=== PATIENT | male | born 1950 | race Caucasian/White ===

== ENCOUNTER → 2016-05-31 | Outpatient (REF) | payer OTHER ==
[~2016-05-31] MED LIST: /ADVA50050 INH; ACET65TA OR; ADV500INH INH; AMLO10TA OR; ANTI50TA OR; ATOR1TAB18 PO; AUGM875T27 PO; COUM10TA PO; COUM1TAB17 PO; COUM2.5T11 PO; COUM7.5T PO; CRES20TA PO; FERR325T3 PO; LISI20TA5 PO; LISINOPRIL/HCTZ PO; MELO7.5S PO; OXYC-299 PO; PERC5TAB PO; PERC5TAB6 PO; SIMV10TA2 PO; SYMB160A INH; TYLE325T5 PO; VICO5TAB16 PO; VITA10002 PO
[2016-05-31 11:48] LABS: INR 1.5
== END ==
LOC: M SHH 11:18
PROVIDERS: ATTEND Nurse Practitioner Family
DX: Z51.81 Encounter for therapeutic drug level monitoring (principal); Z79.01 Long term (current) use of anticoagulants

== ENCOUNTER → 2016-06-02 | Outpatient (REF) | payer OTHER ==
[2016-06-02 11:10] LABS: INR 1.54
== END ==
LOC: M SHH 10:39
PROVIDERS: ATTEND Nurse Practitioner Family
DX: Z51.81 Encounter for therapeutic drug level monitoring (principal); Z79.01 Long term (current) use of anticoagulants

== ENCOUNTER → 2016-06-06 | Outpatient (REF) | payer OTHER ==
[2016-06-06 10:42] LABS: INR 2.3
== END ==
LOC: M SHH 10:14 → M LAB REF 10:14
PROVIDERS: ATTEND Nurse Practitioner Family
DX: Z51.81 Encounter for therapeutic drug level monitoring (principal); Z79.01 Long term (current) use of anticoagulants

== ENCOUNTER → 2016-07-05 | Outpatient (REF) | payer OTHER ==
[2016-07-05 18:43] LABS: ALBUMIN 3.9 GM/DL (3.2-5.2); ALBUMIN/GLOBULIN RATIO 1.08 (1.00-1.93); ALKALINE PHOSPHATASE 107 U/L (45-117); ALT/SGPT 26 U/L (12-78); ANION GAP 11 MEQ/L (8-16); AST/SGOT 20 U/L (15-37); BILIRUBIN,TOTAL 0.3 MG/DL (0.2-1.0); BLOOD UREA NITROGEN 16 MG/DL (7-18); CALCIUM LEVEL 9.1 MG/DL (8.8-10.2); CARBON DIOXIDE LEVEL 28 MEQ/L (21-32); CHLORIDE LEVEL 101 MEQ/L (98-107); CHOLESTEROL LEVEL 132 MG/DL (<200); CREATININE FOR GFR 0.69 MG/DL (0.70-1.30); GLOMERULAR FILTRATION RATE > 60.0 (>49); GLUCOSE, FASTING 86 MG/DL (80-110); SODIUM LEVEL 140 MEQ/L (136-145); TOTAL PROTEIN 7.5 GM/DL (6.4-8.2); TRIGLYCERIDES LEVEL 49 MG/DL (<150)
[2016-07-05 18:48] LABS: POTASSIUM SERUM 4.5 MEQ/L (3.5-5.1)
[2016-07-05 19:15] LABS: BASO % 0.9 % (0.0-1.0); EOS # 0.1 K/mm3 (0.0-0.50); EOS % 2.3 % (0.0-3.0); LARGE UNSTAINED CELL # 0.1 K/mm3 (0.0-0.4); LARGE UNSTAINED CELL % 1.8 % (0.0-4.0); LYMPH # 1.1 K/mm3 (1.5-4.5); LYMPH % 18.4 % (24.0-44.0); MEAN CORPUSCULAR HEMOGLOBIN 30.6 pg (27.0-33.0); MEAN CORPUSCULAR HGB CONC 33.2 g/dl (32.0-36.5); MEAN CORPUSCULAR VOLUME 92.3 fl (80.0-96.0); MONO # 0.4 K/mm3 (0.0-0.8); MONO % 7.1 % (0.0-5.0); NEUTROPHILS # 4.2 K/mm3 (1.8-7.7); NEUTROPHILS % 69.5 % (36.0-66.0); PLATELET COUNT, AUTOMATED 415 k/mm3 (150-450); RED CELL DISTRIBUTION WIDTH 13.1 % (11.5-14.5)
== END ==
LOC: M SFHCADAM 07:51
PROVIDERS: ATTEND Physician Assistant Medical
DX: E78.4 Other hyperlipidemia (principal); R73.01 Impaired fasting glucose

== ENCOUNTER → 2016-08-01 | Outpatient (CLI) | payer OTHER ==
[~2016-08-01] MED LIST changes: +GASTROGRAFIN SOLUTION 30ML (Q9963) As Ordered ONE; +ISOVUE-370 76% 100ML VIAL (Q9967) As Ordered ONE
--- NOTE | 2016-08-01 19:37 | REP ---
CT study of the abdomen and pelvis without and with IV contrast, with oral contrast: History: Left upper quadrant abdominal pain. CT contrast dose: 100 mL of Isovue [address] findings: Preliminary digital flagman radiograph demonstrates an unremarkable bowel gas pattern. The lung bases show a ill-defined 5 mm pulmonary nodule in the left lower lobe on image #6 of 56 in series 304 today's examination. This is not definitely visible on the prior CT study from 08/05/2013. And merits follow-up. The liver is normal in size and homogeneous in texture except for the presence of a simple cyst in the left lobe measuring 1.8 cm in greatest diameter. This it is unchanged from the [address] study. No splenic lesion is seen. Normal adrenal glands are seen bilaterally. The gallbladder and the pancreas are unremarkable. Kidneys enhance symmetrically and are morphologically intact. No hydronephrosis is seen. No retroperitoneal mass or adenopathy is seen. Normal caliber aorta is noted. There is an umbilical hernia noted in the anterior abdominal wall containing what appears to be a loop of distal ileum just prior to the ileocecal valve. No obstruction is seen. The appendix is not separately identified but there is no inflammatory change to suggest appendicitis. There is left colonic diverticulosis without CT evidence of diverticulitis. The umbilical hernia abdominal wall defect measures 2.9 cm in medial lateral span x 2 cm in craniocaudal dimension. Urinary bladder is intact. Seminal vesicles and prostate are unremarkable. No bony destructive lesion is seen. Impression: 1. Umbilical hernia transmitting distal ileal bowel loops without evidence of obstruction. 2. Stable left lobe hepatic cysts. No other acute intraabdominal abnormality. Left colonic diverticulosis seen. 3. 5 mm noncalcified pulmonary nodule left lower lobe merits follow-up. Follow-up CT study suggested with a 6 months. Signed by Freedom Guadalupe MD 08/01/2016 07:47 P
== END ==
LOC: M RAD 15:54
PROVIDERS: ATTEND Surgery
DX: R10.12 Left upper quadrant pain (principal); K42.9 Umbilical hernia without obstruction or gangrene; K76.89 Other specified diseases of liver; K57.30 Diverticulosis of large intestine without perforation or abscess without bleeding; R91.1 Solitary pulmonary nodule

== ENCOUNTER 2016-08-19 05:58 | Day surgery (SDC) | payer OTHER ==
[~2016-08-19] VITALS: Ht 188 cm; Wt 121.0 kg
[~2016-08-19 05:58] MED LIST changes: +ALBU17IN INH; -GASTROGRAFIN SOLUTION 30ML (Q9963) As Ordered ONE; -ISOVUE-370 76% 100ML VIAL (Q9967) As Ordered ONE
[2016-08-19] MEDS ORDERED: LR 1,000 ML IV SCH ×3 (06:15→09:00)
[2016-08-19] MEDS ORDERED: ALBUTEROL SULFATE 2.5 MG/0.5 ML INH NEB SOLN As Ordered ONE (07:00)
[2016-08-19] MEDS ORDERED: ALBUTEROL SULFATE 2.5 MG/0.5 ML INH NEB SOLN INH ONE (07:15)
[2016-08-19] MEDS ORDERED: BUPIVACAINE/EPIN 0.25% 30 ML VIAL As Ordered ONE (07:19)
[2016-08-19] MEDS ORDERED: ceFAZolin 1GM INJ (J0690) As Ordered ONE (07:23)
[2016-08-19] MEDS ORDERED: ceFAZolin SOD 1 GM in D5W MINI-BAG PLUS 50 ML IV ONE (07:30)
[2016-08-19] MEDS ORDERED: PROPOFOL 200 MG/20 ML VIAL As Ordered ONE ×2 (07:41→08:24)
[2016-08-19] MEDS ORDERED: MIDAZOLAM INJ 2 MG/2 ML VIAL (J2250) As Ordered ONE (07:41)
[2016-08-19] MEDS ORDERED: ROCURONIUM BROMIDE 50 MG/5 ML VIAL As Ordered ONE (07:41)
[2016-08-19] MEDS ORDERED: fentaNYL 250 MCG/5 ML INJECTION (J3010) As Ordered ONE (07:41)
[2016-08-19] MEDS ORDERED: LIDOCAINE 2% INJ 100 MG/5 ML SDV (FOR ANES.) As Ordered ONE (07:41)
[2016-08-19] MEDS ORDERED: DESFLURANE 240 ML INHALANT As Ordered ONE (07:41)
[2016-08-19] MEDS ORDERED: NEOSTIGMINE 1MG/ML 5 ML SYRINGE (J2710) As Ordered ONE (07:50)
[2016-08-19] MEDS ORDERED: GLYCOPYRROLATE INJ 0.2 MG/ML 2 ML VIAL As Ordered ONE (07:50)
[2016-08-19] MEDS ORDERED: ONDANSETRON 4MG/2ML VIAL (J2405) As Ordered ONE ×2 (07:50→08:55)
[2016-08-19] MEDS ORDERED: PHENYLephrine HCL 500 MCG/5 ML (100MCG/ML) SYRINGE (J2370) As Ordered ONE ×2 (07:56→08:01)
[2016-08-19] MEDS: PERCOCET 5MG/325MG TAB PO PRN ×3 (08:55→18:55)
[2016-08-19] MEDS ORDERED: fentaNYL 100 MCG/2 ML INJECTION (J3010) As Ordered ONE (08:55)
[2016-08-19] MEDS: fentaNYL 100 MCG/2 ML INJECTION (J3010) IV PRN ×4 (08:55→09:10)
[2016-08-19] MEDS ORDERED: PERCOCET 5MG/325MG TAB As Ordered ONE (08:55)
[2016-08-19] MEDS ORDERED: NORCO, ANEXSIA 5/325MG TABLET (HYDROcodone/ACETAMINOPHEN) PO PRN (09:00)
[2016-08-19] MEDS ORDERED: MORPHINE 2 MG/ML 1ML SYRINGE IV PRN ×2 (09:00→13:30)
[2016-08-19] MEDS ORDERED: ONDANSETRON 4MG/2ML VIAL (J2405) IV PRN ×3 (09:00→13:30)
[2016-08-19] MEDS ORDERED: METOCLOPRAMIDE INJ 10MG/2ML VIAL (J2765) IV PRN ×2 (09:00→13:30)
--- NOTE | 2016-08-19 09:05 | RO ---
DATE OF PROCEDURE: 08/19/2016 PREOPERATIVE DIAGNOSIS: Incisional hernia at the umbilicus. POSTOPERATIVE DIAGNOSIS: Incisional hernia at the umbilicus. PROCEDURE: Incisional hernia/umbilical hernia with mesh. SURGEON: Luis Daniel Baum MD [employer]: ANESTHESIA: General endotracheal anesthesia. ESTIMATED BLOOD LOSS: Minimal. FLUIDS: Crystalloid. DESCRIPTION OF PROCEDURE: The patient was brought to the operating room and was given general anesthesia. After adequate anesthesia and preoperative antibiotics were given, the patient was prepped, draped in the usual sterile fashion. Next, a periumbilical incision was made with skin knife. Electrocautery was used to cut through dermis, underlying subcutaneous tissue down to the fascia itself. The hernia sac was followed all the way around circumferentially and the hernia sac itself was mobilized off the surrounding subcutaneous tissue. The fascial defect was relatively large and I felt was something that would benefit from a ventral patch. Thus, a ventral patch was placed intraperitoneally and the tails of the mesh were sutured superiorly and inferiorly. The fascia was closed over the patch with #0 Ethibond sutures in a [id number] manner. #3-0 Vicryl was used to tack the umbilicus down to the fascia. #3-0 Vicryl was used to approximate dermis. #4-0 Vicryl was used to approximate the skin. Steri-Strips and a dry sterile dressing was applied. The patient was awakened, extubated, brought to recovery room awake, alert and hemodynamically stable. Sponge and needle counts correct times two.
[2016-08-19] MEDS: MORPHINE 2 MG/ML 1ML SYRINGE IV PRN ×2 (09:15→09:23)
[2016-08-19] MEDS ORDERED: NS 0.45% 1,000 ML IV SCH (13:30)
[2016-08-19] MEDS ORDERED: MORPHINE 4 MG/ML 1ML SYRINGE IV PRN (13:30)
[2016-08-19] MEDS ORDERED: PROMETHAZINE INJ 25 MG/ML VIAL (J2550) IV PRN (13:30)
[2016-08-19] MEDS ORDERED: zolPIDEM TARTRATE 10MG TAB PO PRN (13:30)
[2016-08-19] MEDS ORDERED: PERCOCET 5MG/325MG TAB PO PRN (13:30)
[2016-08-19 14:03] VITALS: BP 172/94
[2016-08-19] MEDS: PANTOPRAZOLE 40MG TAB (PROTONIX) PO SCH (15:19)
[2016-08-19] MEDS: LISINOPRIL 20 MG TAB PO SCH (15:19)
[2016-08-19] MEDS: DOCUSATE SODIUM 100 MG CAP PO SCH ×2 (15:19→20:32)
[2016-08-19] MEDS: ATORVASTATIN 20 MG TAB PO SCH (15:20)
[2016-08-19 16:00] VITALS: BP 162/92
[2016-08-19] MEDS: LEVALBUTEROL 1.25 MG/0.5 ML CONCENTRATE NEB INH SCH ×2 (16:00→19:45)
[2016-08-19] MEDS: ADVAIR DISKUS 500/50 INH PWD INH SCH (21:00)
[2016-08-19 22:00] VITALS: BP 114/78
[2016-08-20 06:00] VITALS: BP 118/75
[2016-08-20] MEDS: LEVALBUTEROL 1.25 MG/0.5 ML CONCENTRATE NEB INH SCH ×2 (07:52→11:28)
[2016-08-20] MEDS: DOCUSATE SODIUM 100 MG CAP PO SCH (08:06)
[2016-08-20] MEDS: PANTOPRAZOLE 40MG TAB (PROTONIX) PO SCH (08:07)
[2016-08-20 08:11] VITALS: BP 151/84
[2016-08-20] MEDS: LISINOPRIL 20 MG TAB PO SCH (08:11)
[2016-08-20] MEDS: ATORVASTATIN 20 MG TAB PO SCH (08:11)
[2016-08-20] MEDS: PERCOCET 5MG/325MG TAB PO PRN (08:14)
[2016-08-20 10:00] VITALS: BP 132/79
[2016-08-20] MEDS: ADVAIR DISKUS 500/50 INH PWD INH SCH (11:27)
[2016-08-20] MEDS ORDERED: PERCOCET PO (11:29)
== END 2016-08-20 12:49 | disposition home or self-care (01) ==
LOC: M SDC 05:58 → M MSPAV 14:10 → M SDC 08-20 12:49
PROVIDERS: ATTEND Surgery
DX: K42.9 Umbilical hernia without obstruction or gangrene (principal); I11.9 Hypertensive heart disease without heart failure; E78.4 Other hyperlipidemia; M54.5 Low back pain; J45.30 Mild persistent asthma, uncomplicated; R73.01 Impaired fasting glucose; E66.01 Morbid (severe) obesity due to excess calories; Z79.51 Long term (current) use of inhaled steroids; Z79.899 Other long term (current) drug therapy
CPT/HCPCS: 49585; 88302; 94640; C1781; J0690; J2250; J2370; J2405; J2710; J3010

== ENCOUNTER → 2017-02-09 | Outpatient (REF) | payer OTHER ==
[~2017-02-09] MED LIST changes: -ATOR1TAB18 PO; +ATOR80TA59 PO; -COUM2.5T11 PO; +COUM2.5T17 PO; +OXYC-141 PO; -OXYC-299 PO; +PERC5TAB12 PO; -PERC5TAB6 PO; +PERCOCET PO
== END ==
LOC: M SFHCADAM 08:34
PROVIDERS: ATTEND Physician Assistant Medical
DX: N40.1 Benign prostatic hyperplasia with lower urinary tract symptoms (principal)

== ENCOUNTER → 2017-08-21 | Outpatient (REF) | payer MEDICARE, OTHER ==
[2017-08-21 12:36] LABS: HEMATOCRIT 45.3 % (42.0-52.0); HEMOGLOBIN 15.1 g/dl (14.0-18.0); MEAN CORPUSCULAR HEMOGLOBIN 30.3 pg (27.0-33.0); MEAN CORPUSCULAR HGB CONC 33.3 g/dl (32.0-36.5); MEAN CORPUSCULAR VOLUME 90.8 fl (80.0-96.0); PLATELET COUNT, AUTOMATED 319 10^3/uL (150-450); RED BLOOD COUNT 4.99 10^6/uL (4.30-6.10); RED CELL DISTRIBUTION WIDTH 14.3 % (11.5-14.5); WHITE BLOOD COUNT 5.5 10^3/uL (4.0-10.0)
[2017-08-21 13:09] LABS: MALB URINE SIEMENS 15.9 MG/L; MAU/CREAT RATIO 8.6 MCG/MG (0.0-30.0)
[2017-08-21 13:14] LABS: ALBUMIN 3.8 GM/DL (3.2-5.2); ALBUMIN/GLOBULIN RATIO 1.19 (1.00-1.93); ALKALINE PHOSPHATASE 80 U/L (45-117); ALT/SGPT 31 U/L (12-78); ANION GAP 6 MEQ/L (8-16); AST/SGOT 31 U/L (7-37); BILIRUBIN,TOTAL 0.7 MG/DL (0.2-1.0); BLOOD UREA NITROGEN 20 MG/DL (7-18); CALCIUM LEVEL 8.5 MG/DL (8.8-10.2); CARBON DIOXIDE LEVEL 29 MEQ/L (21-32); CHLORIDE LEVEL 104 MEQ/L (98-107); CHOLESTEROL LEVEL 136 MG/DL (<200); CHOLESTEROL RISK RATIO 2.956 (<5); CREATININE FOR GFR 0.92 MG/DL (0.70-1.30); GLOMERULAR FILTRATION RATE > 60.0 (>49); GLUCOSE, FASTING 92 MG/DL (70-100); HDL CHOLESTEROL 46 MG/DL (>40); LDL CHOLESTEROL 77.6 MG/DL (<100); NON-HDL-C 90 MG/DL; POTASSIUM SERUM 4.1 MEQ/L (3.5-5.1); PSA SCREENING 0.66 NG/ML (< 4.0); SODIUM LEVEL 139 MEQ/L (136-145); TRIGLYCERIDES LEVEL 62 MG/DL (<150)
[2017-08-21 15:04] LABS: ESTIMATED AVERAGE GLUCOSE 120 MG/DL (60-110); HEMOGLOBIN A1c 5.8 %
== END ==
LOC: M SFHCADAM 07:45
DX: E78.4 Other hyperlipidemia (principal); R73.01 Impaired fasting glucose; N40.1 Benign prostatic hyperplasia with lower urinary tract symptoms
CPT/HCPCS: 84443

== ENCOUNTER → 2017-08-22 | Outpatient (REF) | payer OTHER, MEDICARE ==
[2017-08-22 14:01] LABS: APPEARANCE, URINE CLEAR (CLEAR); BACTERIA, URINE AUTO NEGATIVE (NEGATIVE); BILIRUBIN, URINE AUTO NEGATIVE (NEGATIVE); BLOOD, URINE BLOOD NEGATIVE (NEGATIVE); COLOR, URINE YELLOW (YELLOW); GLUCOSE, URINE (UA) AUTO NEGATIVE (NEGATIVE); KETONE, URINE AUTO NEGATIVE (NEGATIVE); LEUKOCYTE ESTERASE, URINE AUTO NEGATIVE (NEGATIVE); NITRITE, URINE AUTO NEGATIVE (NEGATIVE); PROTEIN, URINE AUTO NEGATIVE (NEGATIVE); RBC, URINE AUTO 0 /HPF (0-3); SPECIFIC GRAVITY URINE AUTO 1.021 (1.002-1.035); SQUAMOUS EPITHELIAL CELL UR AU 1 /HPF (0-6); UROBILINOGEN, URINE AUTO 0.2 mg/dL (0.0-2.0); WBC, URINE AUTO 1 /HPF (0-3)
== END ==
LOC: M SFHCADAM 12:42
DX: N39.43 Post-void dribbling (principal)
CPT/HCPCS: 81001

== ENCOUNTER → 2018-02-01 | Outpatient (REF) | payer MEDICARE, OTHER ==
[2018-02-01 12:58] LABS: BASO # 0.1 10^3/uL (0.0-0.2); BASO % 1.6 % (0.0-1.0); EOS # 0.2 10^3/uL (0.0-0.50); EOS % 3.2 % (0.0-3.0); HEMATOCRIT 45.9 % (42.0-52.0); HEMOGLOBIN 15.4 g/dl (13.5-17.5); IMMATURE GRANULOCYTE % 0.3 % (0-3.0); LYMPH # 1.4 10^3/uL (1.5-4.5); LYMPH % 21.9 % (24.0-44.0); MEAN CORPUSCULAR HEMOGLOBIN 30.9 pg (27.0-33.0); MEAN CORPUSCULAR HGB CONC 33.6 g/dl (32.0-36.5); MONO # 0.6 10^3/uL (0.0-0.8); MONO % 9.5 % (0.0-5.0); NEUTROPHILS % 63.5 % (36.0-66.0); PLATELET COUNT, AUTOMATED 300 10^3/uL (150-450); RED BLOOD COUNT 4.99 10^6/uL (4.30-6.10); RED CELL DISTRIBUTION WIDTH 13.9 % (11.5-14.5); WHITE BLOOD COUNT 6.3 10^3/uL (4.0-10.0)
[2018-02-01 13:08] LABS: FOLATE 13.2 NG/ML
[2018-02-01 13:11] LABS: VITAMIN B12 LEVEL 597 PG/ML
[2018-02-01 13:13] LABS: FERRITIN 85 NG/ML (26-388); IRON (FE) 77 UG/DL (65-175); PERCENT SATURATION 23.6 % (19.7-50.0); TOTAL IRON BINDING CAPACITY 326 UG/DL (250-450)
== END ==
LOC: M SFHCADAM 07:58
DX: E61.1 Iron deficiency (principal); N40.1 Benign prostatic hyperplasia with lower urinary tract symptoms; E53.8 Deficiency of other specified B group vitamins
CPT/HCPCS: 82746

== ENCOUNTER → 2018-08-21 | Outpatient (REF) | payer MEDICARE, OTHER ==
[2018-08-21 12:50] LABS: BASO # 0.1 10^3/uL (0.0-0.2); BASO % 1.6 % (0.0-1.0); EOS # 0.3 10^3/uL (0.0-0.50); EOS % 3.7 % (0.0-3.0); HEMATOCRIT 47.7 % (42.0-52.0); HEMOGLOBIN 15.7 g/dl (13.5-17.5); LYMPH # 1.3 10^3/uL (1.5-4.5); LYMPH % 18.6 % (24.0-44.0); MEAN CORPUSCULAR HEMOGLOBIN 29.8 pg (27.0-33.0); MEAN CORPUSCULAR HGB CONC 32.9 g/dl (32.0-36.5); MEAN CORPUSCULAR VOLUME 90.5 fl (80.0-96.0); MONO # 0.6 10^3/uL (0.0-0.8); MONO % 8.8 % (0.0-5.0); NEUTROPHILS # 4.7 10^3/uL (1.8-7.7); PLATELET COUNT, AUTOMATED 320 10^3/uL (150-450); RED BLOOD COUNT 5.27 10^6/uL (4.30-6.10); WHITE BLOOD COUNT 6.9 10^3/uL (4.0-10.0)
[2018-08-21 13:04] LABS: ALT/SGPT 33 U/L (12-78); BILIRUBIN,TOTAL 0.4 MG/DL (0.2-1.0); BLOOD UREA NITROGEN 16 MG/DL (7-18); CALCIUM LEVEL 9.1 MG/DL (8.8-10.2); CARBON DIOXIDE LEVEL 31 MEQ/L (21-32); CHLORIDE LEVEL 102 MEQ/L (98-107); CHOLESTEROL LEVEL 162 MG/DL (<200); CHOLESTEROL RISK RATIO 3.056 (<5); CREATININE FOR GFR 0.83 MG/DL (0.70-1.30); GLOMERULAR FILTRATION RATE > 60.0 (>49); GLUCOSE, FASTING 88 MG/DL (70-100); HDL CHOLESTEROL 53 MG/DL (>40); IRON (FE) 75 UG/DL (65-175); LDL CHOLESTEROL 96 MG/DL (<100); NON-HDL-C 109 MG/DL; PERCENT SATURATION 22.1 % (19.7-50.0); POTASSIUM SERUM 4.5 MEQ/L (3.5-5.1); SODIUM LEVEL 139 MEQ/L (136-145); TOTAL IRON BINDING CAPACITY 340 UG/DL (250-450); TOTAL PROTEIN 7.3 GM/DL (6.4-8.2); TRIGLYCERIDES LEVEL 63 MG/DL (<150)
[2018-08-21 13:05] LABS: FERRITIN 98 NG/ML (26-388); VITAMIN B12 LEVEL 591 PG/ML (247-911)
== END ==
LOC: M SFHCADAM 10:50
PROVIDERS: ATTEND Physician Assistant Medical
DX: I11.9 Hypertensive heart disease without heart failure (principal); R73.01 Impaired fasting glucose; E78.49 Other hyperlipidemia; D50.9 Iron deficiency anemia, unspecified; E53.8 Deficiency of other specified B group vitamins; N40.1 Benign prostatic hyperplasia with lower urinary tract symptoms; E66.01 Morbid (severe) obesity due to excess calories; Z68.41 Body mass index [BMI] 40.0-44.9, adult
CPT/HCPCS: 80053; 80061; 82306; 82607; 82728; 83036; 83550; 84443; 85025; G0103

== ENCOUNTER → 2018-08-28 | Outpatient (CLI) | payer MEDICARE, OTHER ==
[~2018-08-28] MED LIST changes: -/ADVA50050 INH; +ADVA1AER2 INH; -CRES20TA PO; +CRES20TA2 PO
--- NOTE | 2018-08-28 11:04 | REP ---
DUPLEX CAROTID SONOGRAPHY: HISTORY: Carotid artery disease. FINDINGS: Antegrade flow is observed in the left vertebral artery. The right vertebral artery was not seen. RIGHT CAROTID: Right carotid bifurcation is high in the neck. Common carotid artery is unremarkable on two-dimensional scanning. There is mild soft plaquing in the bulb and proximal ICA on two-dimensional scanning. Color flow and spectral Doppler interrogation are unremarkable on the right. Velocity Chart Right Carotid: PSV EDV Right CCA 85 cm/s Right ICA 62 cm/s 11 cm/s Right ECA 83 cm/s Right ICA/CCA ratio normal 0.72. IMPRESSION: 0-15% category narrowing in the right ICA by Doppler velocity criteria. LEFT CAROTID: The left common carotid artery is unremarkable . The left carotid bifurcation is also high in the neck. There is mild mixed plaquing in the bulb and proximal ICA. Color flow and spectral Doppler interrogation are unremarkable on the left. Velocity Chart Left Carotid: PSV EDV Left CCA 81 cm/s Left ICA 31 cm/s 14 cm/s Left ECA 55 cm/s Left ICA/CCA ratio normal 0.4. IMPRESSION: 0-15% category narrowing in the left ICA by Doppler velocity criteria. Electronically Signed by Freedom Guadalupe MD 08/28/2018 01:19 P
== END ==
LOC: M RAD 09:38
PROVIDERS: ATTEND Physician Assistant Medical
DX: I77.9 Disorder of arteries and arterioles, unspecified (principal)

== ENCOUNTER → 2019-02-11 | Outpatient (REF) | payer MEDICARE, OTHER ==
[~2019-02-11] MED LIST changes: +CYAN100049 PO; -VITA10002 PO
[2019-02-11 12:41] LABS: BASO # 0.1 10^3/uL (0.0-0.2); BASO % 1.1 % (0.0-1.0); EOS # 0.2 10^3/uL (0.0-0.5); EOS % 2.9 % (0.0-3.0); HEMOGLOBIN 15.3 g/dl (13.5-17.5); LYMPH # 1.2 10^3/uL (1.5-5.0); LYMPH % 18.7 % (24.0-44.0); MEAN CORPUSCULAR HEMOGLOBIN 30.9 pg (27.0-33.0); MEAN CORPUSCULAR HGB CONC 33.3 g/dl (32.0-36.5); MEAN CORPUSCULAR VOLUME 92.9 fl (80.0-96.0); MONO # 0.5 10^3/uL (0.0-0.8); MONO % 8.2 % (0.0-5.0); NEUTROPHILS # 4.5 10^3/uL (1.5-8.5); NEUTROPHILS % 68.6 % (36.0-66.0); PLATELET COUNT, AUTOMATED 324 10^3/uL (150-450); RED BLOOD COUNT 4.95 10^6/uL (4.30-6.10); WHITE BLOOD COUNT 6.5 10^3/uL (4.0-10.0)
[2019-02-11 12:55] LABS: HEMOGLOBIN A1c 5.9 %
[2019-02-11 12:57] LABS: ALBUMIN 3.8 GM/DL (3.2-5.2); ALT/SGPT 37 U/L (12-78); BILIRUBIN,TOTAL 0.5 MG/DL (0.2-1.0); BLOOD UREA NITROGEN 13 MG/DL (7-18); CALCIUM LEVEL 8.6 MG/DL (8.8-10.2); CARBON DIOXIDE LEVEL 31 MEQ/L (21-32); CHLORIDE LEVEL 102 MEQ/L (98-107); CHOLESTEROL LEVEL 141 MG/DL (<200); CHOLESTEROL RISK RATIO 2.937 (<5); CREATININE FOR GFR 0.85 MG/DL (0.70-1.30); GLOMERULAR FILTRATION RATE > 60.0 (>49); GLUCOSE, FASTING 93 MG/DL (70-100); HDL CHOLESTEROL 48 MG/DL (>40); LDL CHOLESTEROL 77 MG/DL (<100); NON-HDL-C 93 MG/DL; POTASSIUM SERUM 3.9 MEQ/L (3.5-5.1); SODIUM LEVEL 139 MEQ/L (136-145); TOTAL 25(OH) VITAMIN D 29.3 NG/ML (30.0-100.0); TOTAL PROTEIN 6.9 GM/DL (6.4-8.2); TRIGLYCERIDES LEVEL 79 MG/DL (<150)
== END ==
LOC: M SFHCADAM 09:05
PROVIDERS: ATTEND Physician Assistant Medical
DX: I11.9 Hypertensive heart disease without heart failure (principal); E66.01 Morbid (severe) obesity due to excess calories; R73.01 Impaired fasting glucose; I50.32 Chronic diastolic (congestive) heart failure; J45.30 Mild persistent asthma, uncomplicated; D50.9 Iron deficiency anemia, unspecified

== ENCOUNTER → 2019-07-30 | Outpatient (REF) | payer MEDICARE, OTHER ==
[2019-07-30 13:09] LABS: BASO # 0.1 10^3/uL (0.0-0.2); BASO % 1.4 % (0.0-1.0); EOS # 0.2 10^3/uL (0.0-0.5); EOS % 3.6 % (0.0-3.0); HEMATOCRIT 46.6 % (42.0-52.0); HEMOGLOBIN 15.3 g/dl (13.5-17.5); LYMPH # 1.4 10^3/uL (1.5-5.0); MEAN CORPUSCULAR HEMOGLOBIN 30.3 pg (27.0-33.0); MEAN CORPUSCULAR HGB CONC 32.8 g/dl (32.0-36.5); MEAN CORPUSCULAR VOLUME 92.3 fl (80.0-96.0); MONO # 0.6 10^3/uL (0.0-0.8); MONO % 9.3 % (0.0-5.0); NEUTROPHILS # 4.1 10^3/uL (1.5-8.5); NEUTROPHILS % 63.5 % (36.0-66.0); PLATELET COUNT, AUTOMATED 342 10^3/uL (150-450); RED BLOOD COUNT 5.05 10^6/uL (4.30-6.10); WHITE BLOOD COUNT 6.5 10^3/uL (4.0-10.0)
[2019-07-30 13:39] LABS: ALBUMIN 3.9 GM/DL (3.2-5.2); ALT/SGPT 34 U/L (12-78); BILIRUBIN,TOTAL 0.7 MG/DL (0.2-1.0); BLOOD UREA NITROGEN 14 MG/DL (7-18); CALCIUM LEVEL 8.7 MG/DL (8.8-10.2); CARBON DIOXIDE LEVEL 29 MEQ/L (21-32); CHLORIDE LEVEL 104 MEQ/L (98-107); CHOLESTEROL LEVEL 148 MG/DL (<200); CHOLESTEROL RISK RATIO 3.083 (<5); CREATININE FOR GFR 0.88 MG/DL (0.70-1.30); FERRITIN 108 NG/ML (26-388); GLOMERULAR FILTRATION RATE > 60.0 (>49); GLUCOSE, FASTING 98 MG/DL (70-100); HDL CHOLESTEROL 48 MG/DL (>40); IRON (FE) 76 UG/DL (65-175); LDL CHOLESTEROL 88 MG/DL (<100); MALB URINE SIEMENS 24.5 MG/L; MAU/CREAT RATIO 7.7 MCG/MG (0.0-30.0); NON-HDL-C 100 MG/DL; PERCENT SATURATION 22.7 % (19.7-50.0); POTASSIUM SERUM 4.2 MEQ/L (3.5-5.1); SODIUM LEVEL 139 MEQ/L (136-145); TOTAL IRON BINDING CAPACITY 335 UG/DL (250-450); TOTAL PROTEIN 7.3 GM/DL (6.4-8.2); TRIGLYCERIDES LEVEL 60 MG/DL (<150)
[2019-07-30 16:37] LABS: HEMOGLOBIN A1c 6.1 %
== END ==
LOC: M SFHCADAM 08:21
PROVIDERS: ATTEND Physician Assistant Medical
DX: I11.9 Hypertensive heart disease without heart failure (principal); E66.01 Morbid (severe) obesity due to excess calories; R73.01 Impaired fasting glucose; I77.9 Disorder of arteries and arterioles, unspecified; J45.30 Mild persistent asthma, uncomplicated; D50.9 Iron deficiency anemia, unspecified; N40.1 Benign prostatic hyperplasia with lower urinary tract symptoms
CPT/HCPCS: 80053; 80061; 82043; 82728; 83036; 83550; 85025; G0103

== ENCOUNTER → 2020-02-04 | Outpatient (REF) | payer MEDICARE, OTHER ==
[~2020-02-04] MED LIST changes: -COUM7.5T PO; +COUM7.5T6 PO
[2020-02-04 13:40] LABS: BASO # 0.1 10^3/uL (0.0-0.2); BASO % 1.3 % (0.0-1.0); EOS # 0.2 10^3/uL (0.0-0.5); EOS % 2.7 % (0.0-3.0); HEMATOCRIT 47.2 % (42.0-52.0); HEMOGLOBIN 15.6 g/dl (13.5-17.5); LYMPH # 1.3 10^3/uL (1.5-5.0); LYMPH % 19.3 % (24.0-44.0); MEAN CORPUSCULAR HEMOGLOBIN 31.4 pg (27.0-33.0); MEAN CORPUSCULAR HGB CONC 33.1 g/dl (32.0-36.5); MONO # 0.6 10^3/uL (0.0-0.8); MONO % 9.3 % (0.0-5.0); NEUTROPHILS # 4.5 10^3/uL (1.5-8.5); NEUTROPHILS % 67.1 % (36.0-66.0); PLATELET COUNT, AUTOMATED 295 10^3/uL (150-450); RED BLOOD COUNT 4.97 10^6/uL (4.30-6.10); WHITE BLOOD COUNT 6.8 10^3/uL (4.0-10.0)
[2020-02-04 14:05] LABS: ALBUMIN 3.7 GM/DL (3.2-5.2); ALT/SGPT 37 U/L (12-78); BILIRUBIN,TOTAL 0.6 MG/DL (0.2-1.0); BLOOD UREA NITROGEN 14 MG/DL (7-18); CARBON DIOXIDE LEVEL 28 MEQ/L (21-32); CHLORIDE LEVEL 106 MEQ/L (98-107); CHOLESTEROL LEVEL 147 MG/DL (<200); CHOLESTEROL RISK RATIO 2.773 (<5); CREATININE FOR GFR 0.81 MG/DL (0.70-1.30); GLOMERULAR FILTRATION RATE > 60.0 (>49); GLUCOSE, FASTING 96 MG/DL (70-100); HDL CHOLESTEROL 53 MG/DL (>40); LDL CHOLESTEROL 83 MG/DL (<100); NON-HDL-C 94 MG/DL; POTASSIUM SERUM 4.1 MEQ/L (3.5-5.1); SODIUM LEVEL 137 MEQ/L (136-145); TOTAL PROTEIN 7.1 GM/DL (6.4-8.2); TRIGLYCERIDES LEVEL 53 MG/DL (<150)
[2020-02-04 14:41] LABS: HEMOGLOBIN A1c 5.9 %
== END ==
LOC: M LABDRWAD 12:43 → M SFHCADAM 12:43
PROVIDERS: ATTEND Physician Assistant Medical
DX: E66.01 Morbid (severe) obesity due to excess calories (principal); I10 Essential (primary) hypertension

== ENCOUNTER → 2020-08-06 | Outpatient (REF) | payer MEDICARE, OTHER ==
[2020-08-06 12:30] LABS: BASO # 0.1 10^3/uL (0.0-0.2); BASO % 0.9 % (0.0-1.0); EOS # 0.1 10^3/uL (0.0-0.5); EOS % 1.6 % (0.0-3.0); HEMATOCRIT 45.3 % (42.0-52.0); HEMOGLOBIN 15.1 g/dl (13.5-17.5); LYMPH # 1.1 10^3/uL (1.5-5.0); LYMPH % 13.8 % (24.0-44.0); MEAN CORPUSCULAR HEMOGLOBIN 31.1 pg (27.0-33.0); MEAN CORPUSCULAR HGB CONC 33.3 g/dl (32.0-36.5); MEAN CORPUSCULAR VOLUME 93.4 fl (80.0-96.0); MONO # 0.7 10^3/uL (0.0-0.8); MONO % 8.9 % (2.0-8.0); NEUTROPHILS # 5.7 10^3/uL (1.5-8.5); NEUTROPHILS % 74.3 % (36.0-66.0); PLATELET COUNT, AUTOMATED 282 10^3/uL (150-450); RED BLOOD COUNT 4.85 10^6/uL (4.30-6.10); WHITE BLOOD COUNT 7.6 10^3/uL (4.0-10.0)
[2020-08-06 13:00] LABS: ALBUMIN 3.9 GM/DL (3.2-5.2); ALT/SGPT 28 U/L (12-78); BILIRUBIN,TOTAL 0.6 MG/DL (0.2-1.0); BLOOD UREA NITROGEN 16 MG/DL (7-18); CARBON DIOXIDE LEVEL 29 MEQ/L (21-32); CHLORIDE LEVEL 107 MEQ/L (98-107); CHOLESTEROL LEVEL 158 MG/DL (<200); CHOLESTEROL RISK RATIO 2.821 (<5); CREATININE FOR GFR 0.85 MG/DL (0.70-1.30); FERRITIN 84 NG/ML (26-388); GLOMERULAR FILTRATION RATE > 60.0 (>49); GLUCOSE, FASTING 97 MG/DL (70-100); HDL CHOLESTEROL 56 MG/DL (>40); IRON (FE) 84 UG/DL (65-175); LDL CHOLESTEROL 89 MG/DL (<100); NON-HDL-C 102 MG/DL; PERCENT SATURATION 25.1 % (19.7-50.0); POTASSIUM SERUM 4.5 MEQ/L (3.5-5.1); SODIUM LEVEL 140 MEQ/L (136-145); TOTAL IRON BINDING CAPACITY 334 UG/DL (250-450); TOTAL PROTEIN 7.1 GM/DL (6.4-8.2); TRIGLYCERIDES LEVEL 64 MG/DL (<150)
[2020-08-06 13:14] LABS: HEMOGLOBIN A1c 5.6 %
== END ==
LOC: M SFHCADAM 09:33
PROVIDERS: ATTEND Physician Assistant Medical
DX: I11.9 Hypertensive heart disease without heart failure (principal); R73.01 Impaired fasting glucose; D50.9 Iron deficiency anemia, unspecified; E78.2 Mixed hyperlipidemia

== ENCOUNTER → 2021-01-28 | Outpatient (REF) | payer MEDICARE, OTHER ==
[2021-01-28 15:04] LABS: BASO # 0.1 10^3/uL (0.0-0.2); EOS # 0.1 10^3/uL (0.0-0.5); EOS % 1.3 % (0.0-3.0); LYMPH # 1.2 10^3/uL (1.5-5.0); LYMPH % 11.7 % (24.0-44.0); MEAN CORPUSCULAR HEMOGLOBIN 31.2 pg (27.0-33.0); MEAN CORPUSCULAR HGB CONC 33.3 g/dl (32.0-36.5); MEAN CORPUSCULAR VOLUME 93.6 fl (80.0-96.0); MONO # 0.9 10^3/uL (0.0-0.8); MONO % 8.8 % (2.0-8.0); NEUTROPHILS % 76.8 % (36.0-66.0); PLATELET COUNT, AUTOMATED 346 10^3/uL (150-450); RED BLOOD COUNT 5.13 10^6/uL (4.30-6.10); WHITE BLOOD COUNT 10.4 10^3/uL (4.0-10.0)
[2021-01-28 15:28] LABS: HEMOGLOBIN A1c 5.6 %
[2021-01-28 15:48] LABS: ALBUMIN 3.7 GM/DL (3.2-5.2); ALT/SGPT 43 U/L (12-78); BILIRUBIN,TOTAL 0.9 MG/DL (0.2-1.0); BLOOD UREA NITROGEN 12 MG/DL (7-18); CALCIUM LEVEL 8.7 MG/DL (8.8-10.2); CARBON DIOXIDE LEVEL 30 MEQ/L (21-32); CHLORIDE LEVEL 100 MEQ/L (98-107); CHOLESTEROL LEVEL 145 MG/DL (<200); CHOLESTEROL RISK RATIO 2.843 (<5); CREATININE FOR GFR 0.86 MG/DL (0.70-1.30); GLOMERULAR FILTRATION RATE > 60.0 (>49); GLUCOSE, FASTING 105 MG/DL (70-100); HDL CHOLESTEROL 51 MG/DL (>40); LDL CHOLESTEROL 78 MG/DL (<100); NON-HDL-C 94 MG/DL; POTASSIUM SERUM 4.2 MEQ/L (3.5-5.1); SODIUM LEVEL 135 MEQ/L (136-145); TOTAL PROTEIN 7.2 GM/DL (6.4-8.2); TRIGLYCERIDES LEVEL 82 MG/DL (<150)
== END ==
LOC: M SFHCADAM 09:55
PROVIDERS: ATTEND Physician Assistant Medical
DX: I11.9 Hypertensive heart disease without heart failure (principal); E66.01 Morbid (severe) obesity due to excess calories; R73.01 Impaired fasting glucose; I50.32 Chronic diastolic (congestive) heart failure; D50.9 Iron deficiency anemia, unspecified

== ENCOUNTER → 2021-08-05 | Outpatient (REF) | payer MEDICARE, OTHER ==
[2021-08-05 13:11] LABS: BASO # 0.1 10^3/uL (0.0-0.2); BASO % 1.3 % (0.0-1.0); EOS # 0.2 10^3/uL (0.0-0.5); EOS % 2.4 % (0.0-3.0); HEMATOCRIT 44.2 % (42.0-52.0); HEMOGLOBIN 14.6 g/dl (13.5-17.5); LYMPH # 1.3 10^3/uL (1.5-5.0); LYMPH % 21.1 % (24.0-44.0); MEAN CORPUSCULAR HEMOGLOBIN 29.7 pg (27.0-33.0); MONO # 0.7 10^3/uL (0.0-0.8); MONO % 11.4 % (2.0-8.0); NEUTROPHILS # 3.9 10^3/uL (1.5-8.5); NEUTROPHILS % 63.5 % (36.0-66.0); PLATELET COUNT, AUTOMATED 344 10^3/uL (150-450); RED BLOOD COUNT 4.91 10^6/uL (4.30-6.10); WHITE BLOOD COUNT 6.2 10^3/uL (4.0-10.0)
[2021-08-05 13:45] LABS: ALBUMIN 3.6 GM/DL (3.2-5.2); ALT/SGPT 28 U/L (12-78); BILIRUBIN,TOTAL 0.6 MG/DL (0.2-1.0); BLOOD UREA NITROGEN 19 MG/DL (7-18); CALCIUM LEVEL 8.7 MG/DL (8.8-10.2); CARBON DIOXIDE LEVEL 29 MEQ/L (21-32); CHLORIDE LEVEL 104 MEQ/L (98-107); CHOLESTEROL LEVEL 138 MG/DL (<200); CHOLESTEROL RISK RATIO 2.936 (<5); CREATININE FOR GFR 0.87 MG/DL (0.70-1.30); GLOMERULAR FILTRATION RATE > 60.0 (>49); GLUCOSE, FASTING 97 MG/DL (70-100); HDL CHOLESTEROL 47 MG/DL (>40); LDL CHOLESTEROL 82 MG/DL (<100); NON-HDL-C 91 MG/DL; POTASSIUM SERUM 4.6 MEQ/L (3.5-5.1); SODIUM LEVEL 137 MEQ/L (136-145); TOTAL PROTEIN 6.9 GM/DL (6.4-8.2); TRIGLYCERIDES LEVEL 44 MG/DL (<150)
[2021-08-05 14:49] LABS: HEMOGLOBIN A1c 5.6 %
== END ==
LOC: M SFHCPLAZ 08:47
PROVIDERS: ATTEND Physician Assistant Medical
DX: I11.9 Hypertensive heart disease without heart failure (principal); R73.01 Impaired fasting glucose; E78.2 Mixed hyperlipidemia

== ENCOUNTER → 2022-02-11 | Outpatient (REF) | payer MEDICARE, OTHER ==
[2022-02-11 12:48] LABS: BASO # 0.1 10^3/uL (0.0-0.2); BASO % 1.4 % (0.0-1.0); EOS # 0.3 10^3/uL (0.0-0.5); EOS % 4.1 % (0.0-3.0); HEMATOCRIT 46.6 % (42.0-52.0); HEMOGLOBIN 15.1 g/dl (13.5-17.5); LYMPH # 1.7 10^3/uL (1.5-5.0); LYMPH % 24.2 % (24.0-44.0); MEAN CORPUSCULAR HEMOGLOBIN 30.1 pg (27.0-33.0); MEAN CORPUSCULAR HGB CONC 32.4 g/dl (32.0-36.5); MONO # 0.7 10^3/uL (0.0-0.8); MONO % 9.1 % (2.0-8.0); NEUTROPHILS # 4.3 10^3/uL (1.5-8.5); NEUTROPHILS % 60.5 % (36.0-66.0); PLATELET COUNT, AUTOMATED 348 10^3/uL (150-450); RED BLOOD COUNT 5.01 10^6/uL (4.30-6.10); WHITE BLOOD COUNT 7.2 10^3/uL (4.0-10.0)
[2022-02-11 13:37] LABS: ALBUMIN 3.7 GM/DL (3.2-5.2); ALT/SGPT 29 U/L (12-78); BILIRUBIN,TOTAL 0.5 MG/DL (0.2-1.0); BLOOD UREA NITROGEN 15 MG/DL (7-18); CALCIUM LEVEL 8.9 MG/DL (8.8-10.2); CARBON DIOXIDE LEVEL 31 MEQ/L (21-32); CHLORIDE LEVEL 101 MEQ/L (98-107); CHOLESTEROL LEVEL 151 MG/DL (<200); CHOLESTEROL RISK RATIO 3.355 (<5); CREATININE FOR GFR 0.95 MG/DL (0.70-1.30); GLOMERULAR FILTRATION RATE > 60.0 (>49); GLUCOSE, FASTING 109 MG/DL (70-100); HDL CHOLESTEROL 45 MG/DL (>40); LDL CHOLESTEROL 89 MG/DL (<100); NON-HDL-C 106 MG/DL; POTASSIUM SERUM 4.4 MEQ/L (3.5-5.1); SODIUM LEVEL 135 MEQ/L (136-145); TOTAL PROTEIN 7.4 GM/DL (6.4-8.2); TRIGLYCERIDES LEVEL 84 MG/DL (<150)
[2022-02-11 13:44] LABS: MALB URINE SIEMENS 19.6 MG/L; MAU/CREAT RATIO 14.1 MCG/MG (0.0-30.0)
[2022-02-11 14:07] LABS: HEMOGLOBIN A1c 5.9 %
[2022-02-11 14:13] LABS: TOTAL 25(OH) VITAMIN D 28.8 NG/ML (30.0-100.0)
== END ==
LOC: M SFHCADAM 07:54
PROVIDERS: ATTEND Physician Assistant Medical
DX: R73.01 Impaired fasting glucose (principal); J45.30 Mild persistent asthma, uncomplicated; E78.2 Mixed hyperlipidemia; D50.9 Iron deficiency anemia, unspecified

== ENCOUNTER → 2022-03-02 | Outpatient (REF) | payer MEDICARE, OTHER | LOC: M SFHCADAM 17:09 | PROVIDERS: ATTEND Physician Assistant Medical | DX: R05.9 Cough, unspecified (principal) ==

== ENCOUNTER → 2022-05-16 | Outpatient (REF) | payer MEDICARE ==
[2022-05-16 16:21] LABS: HEMOGLOBIN 15.9 g/dl (13.5-17.5); MEAN CORPUSCULAR HEMOGLOBIN 29.7 pg (27.0-33.0); MEAN CORPUSCULAR HGB CONC 32.4 g/dl (32.0-36.5); MEAN CORPUSCULAR VOLUME 91.6 fl (80.0-96.0); PLATELET COUNT, AUTOMATED 386 10^3/uL (150-450); RED BLOOD COUNT 5.35 10^6/uL (4.30-6.10); WHITE BLOOD COUNT 10.3 10^3/uL (4.0-10.0)
[2022-05-16 16:36] LABS: INR 0.91; PARTIAL THROMBOPLASTIN TIME 26.6 SECONDS (24.8-34.2); PROTHROMBIN TIME 12.4 SECONDS (12.5-14.5)
[2022-05-16 16:37] LABS: ALBUMIN 3.8 G/DL (3.2-5.2); ALKALINE PHOSPHATASE 98 U/L (46-116); ALT/SGPT 24 U/L (7.0-40); AST/SGOT 30 U/L (<34); BILIRUBIN,DIRECT 0.2 MG/DL (<0.4); BILIRUBIN,TOTAL 0.5 MG/DL (0.3-1.2); BLOOD UREA NITROGEN 18 MG/DL (9-23); CALCIUM LEVEL 9.3 MG/DL (8.3-10.6); CARBON DIOXIDE LEVEL 28 MMOL/L (20-31); CHLORIDE LEVEL 100 MMOL/L (98-107); CREATININE FOR GFR 1.03 MG/DL (0.70-1.30); GLOMERULAR FILTRATION RATE > 60.0 (>49); GLUCOSE, FASTING 107 MG/DL (74-106); POTASSIUM SERUM 4.3 MMOL/L (3.5-5.1); SODIUM LEVEL 138 MMOL/L (136-145); TOTAL PROTEIN 7.5 G/DL (5.7-8.2)
== END ==
LOC: M SFHCADAM 14:31
PROVIDERS: ATTEND Physician Assistant Medical
DX: Z01.818 Encounter for other preprocedural examination (principal); M19.012 Primary osteoarthritis, left shoulder; M75.102 Unspecified rotator cuff tear or rupture of left shoulder, not specified as traumatic

== ENCOUNTER → 2022-05-18 | Outpatient (CLI) | payer MEDICARE | LOC: M ADAMS 08:22 | PROVIDERS: ATTEND Physician Assistant Medical | DX: Z01.818 Encounter for other preprocedural examination (principal); M19.012 Primary osteoarthritis, left shoulder; M75.102 Unspecified rotator cuff tear or rupture of left shoulder, not specified as traumatic ==

== ENCOUNTER → 2022-05-24 | Outpatient (CLI) | payer MEDICARE, OTHER | LOC: M LABSMTC 10:17 | PROVIDERS: ATTEND Nurse Practitioner Family | DX: Z01.818 Encounter for other preprocedural examination (principal); M19.012 Primary osteoarthritis, left shoulder; M75.102 Unspecified rotator cuff tear or rupture of left shoulder, not specified as traumatic ==

== ENCOUNTER → 2022-08-16 | Outpatient (REF) | payer MEDICARE ==
[2022-08-16 13:10] LABS: TOTAL IRON BINDING CAPACITY 320 UG/DL (250-425)
[2022-08-16 13:11] LABS: IRON (FE) 104 UG/DL (65-175); PERCENT SATURATION 32.5 % (19.7-50.0)
[2022-08-16 13:13] LABS: ALBUMIN 3.8 G/DL (3.2-5.2); ALKALINE PHOSPHATASE 117 U/L (46-116); ALT/SGPT 26 U/L (7.0-40); AST/SGOT 25 U/L (<34); BILIRUBIN,TOTAL 0.9 MG/DL (0.3-1.2); BLOOD UREA NITROGEN 13 MG/DL (9-23); CALCIUM LEVEL 9.4 MG/DL (8.3-10.6); CARBON DIOXIDE LEVEL 30 MMOL/L (20-31); CHLORIDE LEVEL 101 MMOL/L (98-107); CHOLESTEROL LEVEL 145 MG/DL (<200); CHOLESTEROL RISK RATIO 3.37 (<5); CREATININE FOR GFR 0.74 MG/DL (0.70-1.30); GLOMERULAR FILTRATION RATE > 60.0 (>42); GLUCOSE, FASTING 114 MG/DL (74-106); LDL CHOLESTEROL 82.2 MG/DL (<100); MAGNESIUM LEVEL 1.8 MG/DL (1.8-2.4); POTASSIUM SERUM 4.2 MMOL/L (3.5-5.1); SODIUM LEVEL 137 MMOL/L (136-145); THYROID STIMULATING HORMONE 1.812 uIU/ML (0.55-4.78); TOTAL 25(OH) VITAMIN D 25.3 NG/ML (20.0-100.0); TOTAL PROTEIN 7.2 G/DL (5.7-8.2); TRIGLYCERIDES LEVEL 99 MG/DL (<150)
[2022-08-16 13:16] LABS: BASO # 0.1 10^3/uL (0.0-0.2); BASO % 1.1 % (0.0-1.0); EOS # 0.2 10^3/uL (0.0-0.5); HEMATOCRIT 47.7 % (42.0-52.0); HEMOGLOBIN 15.7 g/dl (13.5-17.5); LYMPH # 1.2 10^3/uL (1.5-5.0); LYMPH % 11.9 % (24.0-44.0); MEAN CORPUSCULAR HGB CONC 32.9 g/dl (32.0-36.5); MEAN CORPUSCULAR VOLUME 91.2 fl (80.0-96.0); MONO # 0.7 10^3/uL (0.0-0.8); MONO % 7.1 % (2.0-8.0); NEUTROPHILS # 7.7 10^3/uL (1.5-8.5); NEUTROPHILS % 77.6 % (36.0-66.0); PLATELET COUNT, AUTOMATED 355 10^3/uL (150-450); RED BLOOD COUNT 5.23 10^6/uL (4.30-6.10)
[2022-08-16 13:26] LABS: HEMOGLOBIN A1c 5.6 % (4.0-6.0)
[2022-08-16 13:36] LABS: MAU/CREAT RATIO 8.4 MCG/MG (0.0-30.0)
== END ==
LOC: M SFHCADAM 10:01
PROVIDERS: ATTEND Physician Assistant Medical
DX: E78.2 Mixed hyperlipidemia (principal); D50.9 Iron deficiency anemia, unspecified; R73.01 Impaired fasting glucose; Z79.899 Other long term (current) drug therapy

== ENCOUNTER → 2023-08-23 | Outpatient (REF) | payer MEDICARE ==
[2023-08-23 14:20] LABS: BASO # 0.1 10^3/uL (0.0-0.2); BASO % 1.3 % (0.0-1.0); EOS # 0.2 10^3/uL (0.0-0.5); EOS % 3.2 % (0.0-3.0); HEMATOCRIT 46.7 % (42.0-52.0); HEMOGLOBIN 15.5 g/dl (13.5-17.5); LYMPH # 1.7 10^3/uL (1.5-5.0); LYMPH % 23.8 % (24.0-44.0); MEAN CORPUSCULAR HEMOGLOBIN 30.6 pg (27.0-33.0); MEAN CORPUSCULAR HGB CONC 33.2 g/dl (32.0-36.5); MEAN CORPUSCULAR VOLUME 92.3 fl (80.0-96.0); MONO # 0.7 10^3/uL (0.0-0.8); NEUTROPHILS # 4.4 10^3/uL (1.5-8.5); NEUTROPHILS % 61.4 % (36.0-66.0); PLATELET COUNT, AUTOMATED 320 10^3/uL (150-450); RED BLOOD COUNT 5.06 10^6/uL (4.30-6.10); WHITE BLOOD COUNT 7.1 10^3/uL (4.0-10.0)
[2023-08-23 14:24] LABS: ALBUMIN 3.6 G/DL (3.2-5.2); ALKALINE PHOSPHATASE 88 U/L (46-116); ALT/SGPT 24 U/L (7.0-40); AST/SGOT 19 U/L (<34); BILIRUBIN,TOTAL 0.8 MG/DL (0.3-1.2); BLOOD UREA NITROGEN 15 MG/DL (9-23); CALCIUM LEVEL 8.9 MG/DL (8.3-10.6); CARBON DIOXIDE LEVEL 31 MMOL/L (20-31); CHLORIDE LEVEL 102 MMOL/L (98-107); CHOLESTEROL LEVEL 138 MG/DL (<200); CHOLESTEROL RISK RATIO 3.53 (<5); CREATININE FOR GFR 0.78 MG/DL (0.70-1.30); GLOMERULAR FILTRATION RATE > 60.0 (>42); GLUCOSE, FASTING 99 MG/DL (74-106); LDL CHOLESTEROL 84.6 MG/DL (<100); SODIUM LEVEL 139 MMOL/L (136-145); TOTAL 25(OH) VITAMIN D 24.3 NG/ML (20.0-100.0); TOTAL PROTEIN 6.6 G/DL (5.7-8.2); TRIGLYCERIDES LEVEL 72 MG/DL (<150)
[2023-08-23 19:15] LABS: HEMOGLOBIN A1c 5.8 % (4.0-6.0)
== END ==
LOC: M SFHCADAM 08:36
PROVIDERS: ATTEND Physician Assistant Medical
DX: I11.9 Hypertensive heart disease without heart failure (principal); E66.01 Morbid (severe) obesity due to excess calories; R73.01 Impaired fasting glucose; I50.32 Chronic diastolic (congestive) heart failure; J44.9 Chronic obstructive pulmonary disease, unspecified; E78.2 Mixed hyperlipidemia

== ENCOUNTER → 2023-09-08 | Outpatient (CLI) | payer MEDICARE, OTHER | LOC: M ADAMS 10:58 | PROVIDERS: ATTEND Physician Assistant | DX: J98.11 Atelectasis (principal); J45.41 Moderate persistent asthma with (acute) exacerbation ==

== ENCOUNTER → 2024-02-22 | Outpatient (REF) | payer MEDICARE, OTHER ==
[2024-02-22 13:32] LABS: FERRITIN 77.5 NG/ML (10.5-307.3); THYROID STIMULATING HORMONE 2.504 uIU/ML (0.55-4.78); TOTAL 25(OH) VITAMIN D 39.9 NG/ML (20.0-100.0)
[2024-02-22 13:33] LABS: FREE T4 1.22 NG/DL (0.89-1.76); IRON (FE) 73 UG/DL (65-175)
[2024-02-22 13:34] LABS: ALBUMIN 3.6 G/DL (3.2-5.2); ALKALINE PHOSPHATASE 101 U/L (46-116); ALT/SGPT 28 U/L (7.0-40); AST/SGOT 20 U/L (<34); BASO # 0.1 10^3/uL (0.0-0.2); BASO % 1.3 % (0.0-1.0); BILIRUBIN,TOTAL 0.6 MG/DL (0.3-1.2); BLOOD UREA NITROGEN 13 MG/DL (9-23); CALCIUM LEVEL 9.4 MG/DL (8.3-10.6); CARBON DIOXIDE LEVEL 32 MMOL/L (20-31); CHLORIDE LEVEL 102 MMOL/L (98-107); CHOLESTEROL LEVEL 145 MG/DL (<200); CHOLESTEROL RISK RATIO 3.98 (<5); CREATININE FOR GFR 0.83 MG/DL (0.70-1.30); EOS # 0.3 10^3/uL (0.0-0.5); EOS % 4.4 % (0.0-3.0); GLOMERULAR FILTRATION RATE > 60.0 (>42); GLUCOSE, FASTING 102 MG/DL (74-106); HDL CHOLESTEROL 36.4 MG/DL (>40); HEMATOCRIT 47.4 % (42.0-52.0); HEMOGLOBIN 15.4 g/dl (13.5-17.5); LDL CHOLESTEROL 94.8 MG/DL (<100); LYMPH # 1.4 10^3/uL (1.5-5.0); MEAN CORPUSCULAR HGB CONC 32.5 g/dl (32.0-36.5); MEAN CORPUSCULAR VOLUME 92.4 fl (80.0-96.0); MONO # 0.7 10^3/uL (0.0-0.8); MONO % 9.2 % (2.0-8.0); NEUTROPHILS # 4.6 10^3/uL (1.5-8.5); NEUTROPHILS % 64.7 % (36.0-66.0); NON-HDL-C 108.6 MG/DL; PERCENT SATURATION 23.9 % (19.7-50.0); PLATELET COUNT, AUTOMATED 326 10^3/uL (150-450); POTASSIUM SERUM 4.3 MMOL/L (3.5-5.1); RED BLOOD COUNT 5.13 10^6/uL (4.30-6.10); SODIUM LEVEL 139 MMOL/L (136-145); TOTAL IRON BINDING CAPACITY 305 UG/DL (250-425); TOTAL PROTEIN 6.9 G/DL (5.7-8.2); TRIGLYCERIDES LEVEL 69 MG/DL (<150); VITAMIN B12 LEVEL 574 PG/ML (211-911); WHITE BLOOD COUNT 7.1 10^3/uL (4.0-10.0)
[2024-02-22 13:57] LABS: CREATININE, URINE 96.3 MG/DL
[2024-02-22 13:58] LABS: MALB URINE SIEMENS < 3.0 MG/L; MAU/CREAT RATIO 3.1 MCG/MG (0.0-30.0)
[2024-02-22 14:12] LABS: HEMOGLOBIN A1c 5.8 % (4.0-6.0)
== END ==
LOC: M SFHCADAM 07:43
PROVIDERS: ATTEND Physician Assistant Medical
DX: I50.32 Chronic diastolic (congestive) heart failure (principal); R73.01 Impaired fasting glucose; E78.2 Mixed hyperlipidemia; D50.9 Iron deficiency anemia, unspecified; E55.9 Vitamin D deficiency, unspecified

== ENCOUNTER → 2024-08-23 | Outpatient (REF) | payer MEDICARE, OTHER ==
[~2024-08-23] MED LIST changes: -ADV500INH INH; +ADVA1AER10 INH
[2024-08-23 13:57] LABS: BASO # 0.1 10^3/uL (0.0-0.2); BASO % 1.4 % (0.0-1.0); EOS # 0.2 10^3/uL (0.0-0.5); EOS % 3.3 % (0.0-3.0); HEMATOCRIT 48.8 % (42.0-52.0); HEMOGLOBIN 15.9 g/dl (13.5-17.5); LYMPH # 1.4 10^3/uL (1.5-5.0); LYMPH % 20.3 % (24.0-44.0); MEAN CORPUSCULAR HGB CONC 32.6 g/dl (32.0-36.5); MEAN CORPUSCULAR VOLUME 92.1 fl (80.0-96.0); MONO # 0.7 10^3/uL (0.0-0.8); MONO % 9.2 % (2.0-8.0); NEUTROPHILS # 4.6 10^3/uL (1.5-8.5); NEUTROPHILS % 65.5 % (36.0-66.0); PLATELET COUNT, AUTOMATED 340 10^3/uL (150-450); WHITE BLOOD COUNT 7.1 10^3/uL (4.0-10.0)
[2024-08-23 14:29] LABS: ALBUMIN 3.8 G/DL (3.2-5.2); ALKALINE PHOSPHATASE 87 U/L (40-129); ALT/SGPT 28 U/L (7.0-40); AST/SGOT 27 U/L (<34); BILIRUBIN,TOTAL 0.6 MG/DL (0.3-1.2); BLOOD UREA NITROGEN 14 MG/DL (9-23); CALCIUM LEVEL 8.9 MG/DL (8.3-10.6); CARBON DIOXIDE LEVEL 31 MMOL/L (20-31); CHLORIDE LEVEL 100 MMOL/L (98-107); CHOLESTEROL LEVEL 150 MG/DL (<200); CHOLESTEROL RISK RATIO 3.67 (<5); CREATININE FOR GFR 0.79 MG/DL (0.70-1.30); GLOMERULAR FILTRATION RATE > 60.0 (>42); GLUCOSE, FASTING 100 MG/DL (74-106); HDL CHOLESTEROL 40.8 MG/DL (>40); LDL CHOLESTEROL 88.8 MG/DL (<100); NON-HDL-C 109.2 MG/DL; POTASSIUM SERUM 4.2 MMOL/L (3.5-5.1); SODIUM LEVEL 138 MMOL/L (136-145); THYROID STIMULATING HORMONE 3.248 uIU/ML (0.55-4.78); TOTAL 25(OH) VITAMIN D 38.6 NG/ML (20.0-100.0); TOTAL PROTEIN 7.1 G/DL (5.7-8.2); TRIGLYCERIDES LEVEL 102 MG/DL (<150)
[2024-08-23 15:26] LABS: HEMOGLOBIN A1c 5.9 % (4.0-6.0)
== END ==
LOC: M SFHCADAM 08:09
PROVIDERS: ATTEND Physician Assistant Medical
DX: E66.01 Morbid (severe) obesity due to excess calories (principal); I50.32 Chronic diastolic (congestive) heart failure; R73.01 Impaired fasting glucose; E78.2 Mixed hyperlipidemia; D50.9 Iron deficiency anemia, unspecified

== ENCOUNTER → 2025-01-09 | Outpatient (CLI) | payer MEDICARE, OTHER | LOC: M CARPUL 10:31 | PROVIDERS: ATTEND Physician Assistant Medical | DX: I11.9 Hypertensive heart disease without heart failure (principal) ==

== ENCOUNTER → 2025-03-12 | Outpatient (REF) | payer MEDICARE, OTHER ==
[2025-03-12 14:47] LABS: FREE T4 1.28 NG/DL (0.89-1.76)
[2025-03-12 14:49] LABS: ALT/SGPT 27 U/L (7.0-40); AST/SGOT 26 U/L (<34); CALCIUM LEVEL 8.9 MG/DL (8.3-10.6); CARBON DIOXIDE LEVEL 29 MMOL/L (20-31); CHLORIDE LEVEL 100 MMOL/L (98-107); CHOLESTEROL LEVEL 169 MG/DL (<200); CHOLESTEROL RISK RATIO 3.60 (<5); CREATININE FOR GFR 0.88 MG/DL (0.70-1.30); GLOMERULAR FILTRATION RATE > 90.0 (>42); IRON (FE) 68 UG/DL (65-175); LDL CHOLESTEROL 105.9 MG/DL (<100); NON-HDL-C 122.1 MG/DL; PERCENT SATURATION 22.7 % (19.7-50.0); POTASSIUM SERUM 4.3 MMOL/L (3.5-5.1); SODIUM LEVEL 139 MMOL/L (136-145); TOTAL 25(OH) VITAMIN D 40.5 NG/ML (20.0-100.0); TRIGLYCERIDES LEVEL 81 MG/DL (<150)
[2025-03-12 14:50] LABS: BASO # 0.1 10^3/uL (0.0-0.2); BASO % 1.1 % (0.0-1.0); EOS # 0.8 10^3/uL (0.0-0.5); EOS % 9.8 % (0.0-3.0); LYMPH # 1.5 10^3/uL (1.5-5.0); LYMPH % 18.5 % (24.0-44.0); MONO # 0.7 10^3/uL (0.0-0.8); MONO % 9.0 % (2.0-8.0); NEUTROPHILS # 5.0 10^3/uL (1.5-8.5); NEUTROPHILS % 61.1 % (36.0-66.0); PLATELET COUNT, AUTOMATED 346 10^3/uL (150-450)
[2025-03-12 15:16] LABS: ESTIMATED AVERAGE GLUCOSE 126.0 MG/DL (60-110)
== END ==
LOC: M SFHCADAM 08:08
PROVIDERS: ATTEND Physician Assistant Medical
DX: I11.9 Hypertensive heart disease without heart failure (principal); E66.01 Morbid (severe) obesity due to excess calories; I50.32 Chronic diastolic (congestive) heart failure; N40.1 Benign prostatic hyperplasia with lower urinary tract symptoms; D50.9 Iron deficiency anemia, unspecified; R73.01 Impaired fasting glucose